=== PATIENT | female | born 1955 | race Caucasian/White ===

== ENCOUNTER → 2022-05-04 | Day surgery (SDC) | payer MEDICARE ==
[2022-05-02 14:33] LABS: Basophils # (auto) 0.1 10 ^3/uL (0-0.2); Eosinophils # (auto) 0.2 10 ^3/uL (0-0.8); Eosinophils % (auto) 2.3 % (0.0-7.0); Hematocrit 38.7 % (36.0-46.0); Hemoglobin 13.3 g/dL (12.2-16.2); Lymphocytes # (auto) 2.1 10 ^3/uL (0.4-5.4); Lymphocytes % (auto) 32.4 % (10.0-50.0); Mean Corpuscular Hemoglobin 31.3 pg (28.0-32.0); Mean Corpuscular Hgb Conc. 34.4 g/dL (32.0-36.0); Mean Corpuscular Volume 90.9 fL (80.0-100.0); Monocytes # (auto) 0.5 10 ^3/uL (0-1.3); Monocytes % (auto) 7.7 % (0.0-12.0); Neutrophils # (auto) 3.7 10 ^3/uL (1.6-8.6); Neutrophils % (auto) 56.6 % (37.0-80.0); Nucleated Red Blood Cells % 0.2 %; Red Blood Cells 4.26 10^6/uL (4.0-5.20); Red Cell Distribution Width 13.8 % (11.8-14.3); White Blood Cell 6.6 10^3/uL (4.4-10.8)
[2022-05-02 14:40] LABS: Partial Thromboplastin Time 27.9 sec (24.6-33.4)
[2022-05-02 14:42] LABS: Albumin 4.3 g/dL (3.4-5.0); Calcium 9.4 mg/dL (8.5-10.1); Potassium 3.8 mmol/L (3.5-5.1)
[2022-05-02 14:45] LABS: BUN/Creatinine Ratio 24.2; Bilirubin, Total 0.6 mg/dL (0.2-1.0); Total Protein 7.7 g/dL (6.4-8.2)
[2022-05-02 15:12] LABS: Urine Bacteria FEW /hpf (None Seen); Urine Blood Negative /uL (Negative); Urine Specific Gravity 1.015 (1.001-1.035); Urine WBC 2 /hpf (0 - 5)
[~2022-05-04] VITALS: Ht 170.2 cm; Wt 89.4 kg
[~2022-05-04] MED LIST: AMIO100T3 OR; LEVO175T2 PO; LIDOCAINE 2% (LOCAL ANESTH.) PF 5ml SDV ONE; MEPERIDINE HCL (25 MG/ML) 1ML VIAL ONE; MIDAZOLAM HCL 2MG/2ML 2ml VIAL (1mg/ml) ONE; ONDANSETRON HCL 4 MG/2 ML VIAL IV PRN; ONDANSETRON HCL 4 MG/2 ML VIAL ONE; PROPOFOL 10 MG/ML 20 ML IV ONE; ROSU20TA14 PO
[2022-05-04 13:42] VITALS: BP 147/69
== END | disposition home or self-care (01) ==
LOC: GI 09:25
PROVIDERS: ATTEND Internal Medicine Gastroenterology
DX: K62.5 Hemorrhage of anus and rectum (principal); K63.5 Polyp of colon; K62.1 Rectal polyp; K57.30 Diverticulosis of large intestine without perforation or abscess without bleeding; K64.8 Other hemorrhoids; I10 Essential (primary) hypertension; E78.5 Hyperlipidemia, unspecified; E03.9 Hypothyroidism, unspecified; Z88.5 Allergy status to narcotic agent; Z88.6 Allergy status to analgesic agent; Z90.49 Acquired absence of other specified parts of digestive tract; Z79.899 Other long term (current) drug therapy; Z79.890 Hormone replacement therapy; Z98.890 Other specified postprocedural states; Z87.891 Personal history of nicotine dependence; Z20.822 Contact with and (suspected) exposure to COVID-19
CPT/HCPCS: 36415; 45380; 45385; 80053; 81001; 85025; 85610; 85730; J2001; J2175; J2250; J2405; J2704; J7030; U0003